=== PATIENT | female | born 1965 | race African-American/Black ===

== ENCOUNTER 2020-03-10 10:44 | Outpatient (REF) | payer MEDICARE, MEDICAID, SELFPAY ==
--- NOTE | 2020-03-10 | US_ITS ---
EXAMINATION: US ABDOMEN COMPLETE CLINICAL INFORMATION: Upper abdominal pain. COMPARISON: Report of abdomen ultrasound 09/18/11 TECHNIQUE: Real-time imaging of the abdominal viscera. FINDINGS: PANCREAS: No suspicious abnormality in the visualized portion of the pancreas. ABDOMINAL AORTA: The proximal, mid, and distal segments are normal in caliber. INFERIOR VENA CAVA: Visualized portions are normal. LIVER: Normal. The liver is normal in size. The liver contour is normal. Parenchymal echogenicity is normal. No focal hepatic lesion. There is no intrahepatic biliary duct dilatation seen. GALLBLADDER: Normal. The gallbladder is physiologically distended without evidence of stones, sludge, polyps, wall thickening or pericholecystic fluid. No reported tenderness to transducer pressure over the gallbladder. COMMON BILE DUCT: Normal in caliber measuring 0.3 cm in diameter. RIGHT KIDNEY: Normal. No hydronephrosis. No renal calculi or focal parenchymal lesions. The kidney measures 10.6 cm in maximum dimension. LEFT KIDNEY: Normal. No hydronephrosis. No renal calculi or focal parenchymal lesions. The kidney measures 10.3 cm in maximum dimension. SPLEEN: Normal. The spleen measures 8.6 cm in maximum dimension. FREE FLUID: None. US/US abdomen complete IMPRESSION: No etiology for upper abdomen pain demonstrated. Specifically there is no cholelithiasis or biliary dilation.
== END 2020-03-10 10:45 | disposition home or self-care (01) ==
LOC: HO.US 10:44
PROVIDERS: PCP Internal Medicine; Visit Provider Internal Medicine Gastroenterology
DX: R10.10 Upper abdominal pain, unspecified (principal)
CPT/HCPCS: 76700

== ENCOUNTER 2020-03-14 10:14 | Outpatient (REF) | payer MEDICARE, MEDICAID, SELFPAY ==
--- NOTE | 2020-03-14 10:19 | FL_ITS ---
EXAMINATION: FL BARIUM SWALLOW FL UPPER GI SERIES CLINICAL INFORMATION: Abdominal pain. Difficulty swallowing. COMPARISON: None TECHNIQUE: Barium swallow and upper GI exam was attempted, however, was incomplete. FINDINGS: Following oral administration of thick barium and effervescent granules, there is normal propagation of bolus from the oral cavity through the pharynx, esophagus into stomach without any evidence of obstruction, narrowing or stricture. On placing patient supine and asking patient to do 360 degree rotation for good optimization of stomach mucosa, patient had difficulty rotating and had significant pain in the right knee. She further refused the entire exam. The exam was terminated. FLUOROSCOPY TIME: 0.6 minutes DOSE AREA PRODUCT: 4.9 uGy-m2 (microgray-meter squared) FL/FL upper GI series IMPRESSION: Incomplete upper GI exam. A widely patent esophagus is noted. A widely patent GE junction is noted. No laryngeal penetration or aspiration seen. The stomach and the duodenum component of the upper GI was not performed.
--- NOTE | 2020-03-14 10:20 | FL_ITS ---
EXAMINATION: FL BARIUM SWALLOW FL UPPER GI SERIES CLINICAL INFORMATION: Abdominal pain. Difficulty swallowing. COMPARISON: None TECHNIQUE: Barium swallow and upper GI exam was attempted, however, was incomplete. FINDINGS: Following oral administration of thick barium and effervescent granules, there is normal propagation of bolus from the oral cavity through the pharynx, esophagus into stomach without any evidence of obstruction, narrowing or stricture. On placing patient supine and asking patient to do 360 degree rotation for good optimization of stomach mucosa, patient had difficulty rotating and had significant pain in the right knee. She further refused the entire exam. The exam was terminated. FLUOROSCOPY TIME: 0.6 minutes DOSE AREA PRODUCT: 4.9 uGy-m2 (microgray-meter squared) FL/FL barium swallow IMPRESSION: Incomplete upper GI exam. A widely patent esophagus is noted. A widely patent GE junction is noted. No laryngeal penetration or aspiration seen. The stomach and the duodenum component of the upper GI was not performed.
== END 2020-03-14 10:15 | disposition home or self-care (01) ==
LOC: HO.XRAY 10:14
PROVIDERS: PCP Internal Medicine; Visit Provider Internal Medicine Gastroenterology
DX: R13.14 Dysphagia, pharyngoesophageal phase (principal); R10.10 Upper abdominal pain, unspecified
CPT/HCPCS: 74220; 74240

== ENCOUNTER 2020-04-24 08:37 | Day surgery (SDC) | payer MEDICARE, MEDICAID, SELFPAY ==
[2020-04-18 15:42] VITALS: BMI 38.0
--- NOTE | 2020-04-19 08:46 | MHC.SHP ---
Pre-Procedural Eval Section A The patient is an INPATIENT: No The History & Physical has been completed within 30 days and I have reviewed it.: Yes Section B Chief Complaint: Ocular Trauma Allergies: Allergies Allergy/AdvReac Type Severity Reaction Status Date / Time oxycodone AdvReac Unknown dizziness Uncoded 04/18/20 15:38 Plan Diagnosis/Plan: Unchanged Patient has been examined and remains a candidate for the planned procedure
--- NOTE | 2020-04-21 12:43 | HO.ANESPROP2 ---
Documented by User: Tawanna Jasso 04/21/20 12:48 HPI - Anesthesia Eval Consult details Narrative: 54yo F for Eye Evisceration Repair PCP cleared [facility] Past Medical History Medical History (Updated 04/24/20 @ 10:56 by Kierra Hagen) Arthritis Blind left eye Gastroesophageal reflux disease History of postmenopausal bleeding Hx of migraines Increased BMI Family History Family History (Updated 04/04/20 @ 09:09 by Sandy Bettencourt Angel) Father Medical history unknown Mother Medical history unknown Surgical History Surgical History (Updated 04/18/20 @ 15:36 by Patience He) History of total left knee replacement (TKR) Social History Social History (Updated 04/18/20 @ 15:37 by Patience He) Alcohol intake: never Smoking Status: Former smoker Smoking Quit Date: 1985 Use of substances other than those prescribed or required for medical reasons: No Advance Directives: No Advance Directives Information Provided: No Advance Directives on File: No Meds Allergies Allergy/AdvReac Type Severity Reaction Status Date / Time oxycodone AdvReac Unknown dizziness Uncoded 04/18/20 15:38 Home Medications Medication Instructions Recorded Confirmed Type famotidine 20 mg tablet 20 mg PO BID PRN 04/07/20 04/18/20 History naproxen 500 mg tablet 500 mg PO Q12H PRN 04/07/20 04/18/20 History norethindrone acetate 5 mg tablet 5 mg PO BID 04/07/20 04/18/20 History nystatin 100,000 unit/gram topical TOPICAL DAILY 04/07/20 04/08/20 History cream Exam Exam Date and Time: April 21, 2020 1243 Height,Weight and Vital Signs: Height 5 ft 3 in Weight 97.522 kg Assessment and Plan Assessment Anesthesia Assessment: Chart Reviewed Documented by User: Kierra Hagen 04/24/20 10:57 HPI - Anesthesia Eval Consult details Narrative: Patient here for evisceration of left eye under general anesthesia [facility] Past Medical History Medical History (Updated 04/24/20 @ 10:56 by Kierra Hagen) Arthritis Blind left eye Gastroesophageal reflux disease History of postmenopausal bleeding Hx of migraines Increased BMI Family History Family History (Updated 04/04/20 @ 09:09 by Sandy Bettencourt [facility]) Father Medical history unknown Mother Medical history unknown Family history of problems with anesthesia: No Surgical History Surgical History (Updated 04/18/20 @ 15:36 by Patience He) History of total left knee replacement (TKR) History of Problems with Anesthesia: No Social History Social History (Updated 04/18/20 @ 15:37 by Patience He) Alcohol intake: never Smoking Status: Former smoker Smoking Quit Date: 1985 Use of substances other than those prescribed or required for medical reasons: No Advance Directives: No Advance Directives Information Provided: No Advance Directives on File: No Meds Allergies Allergy/AdvReac Type Severity Reaction Status Date / Time oxycodone AdvReac Unknown dizziness Uncoded 04/18/20 15:38 Home Medications Medication Instructions Recorded Confirmed Type famotidine 20 mg tablet 20 mg PO BID PRN 04/07/20 04/18/20 History naproxen 500 mg tablet 500 mg PO Q12H PRN 04/07/20 04/18/20 History norethindrone acetate 5 mg tablet 5 mg PO BID 04/07/20 04/18/20 History nystatin 100,000 unit/gram topical TOPICAL DAILY 04/07/20 04/08/20 History cream Exam Height,Weight and Vital Signs: Vital Signs Temp Pulse Resp BP Pulse Ox 04/24/20 09:49 98.4 F 84 16 143/85 H 99 Narrative Narrative: Patient refuses to open mouth wide- states has pain in her throat when opens mouth wide. Airway Mallampati Class: III TM Dist: >3cm Neck ROM: Full Heart: RRR Lungs: CTAB Assessment and Plan Assessment Anesthesia Assessment: Anesthesia Plan Discussed and Chart Reviewed Final Anesthetic Review NPO: Yes ASA Class: III Final Preanesthetic Review: No Changes in Pt Med Stat, Meds/Allgs Chart Reviewed, Consent Obtained/Reviewed and Anes Risks/Benef Reviewed Patient Risk: Intermediate Procedure Risk: Low Anesthetic Plan Anesthetic Plan: GA Disposition: Standard PACU
[2020-04-24] VITALS (9 sets, daily range): BP systolic 131–146; BP diastolic 85–96; PULSE 64–96; RESP 12–18; TEMP 36.1–36.9; O2SAT 98–100
[2020-04-24] MEDS: Lactated Ringers 500 ML 50 ML IV (10:10)
[2020-04-24] MEDS: fentaNYL citrate/PF 100 MCG/2 ML VIAL 50 MCG IVPUSH ×2 (12:43→12:53)
[2020-04-24] MEDS: Acetaminophen 325 MG TABLET 650 MG PO (12:44)
--- NOTE | 2020-04-24 23:38 | OP_ITS ---
SURGEON: Raheem Holguin MD PREOPERATIVE DIAGNOSIS: Painful blind, left eye. POSTOPERATIVE DIAGNOSIS: Painful blind, left eye. PROCEDURE PERFORMED: Evisceration of the left eye. ESTIMATED BLOOD LOSS: COMPLICATIONS: ANESTHESIA: General. ASSISTANTS: SPECIMENS: DESCRIPTION OF PROCEDURE: After obtaining informed consent, the patient was brought to the operating room suite and placed in supine position. After being placed under general anesthesia, attention was directed to the left eye which was prepped and draped in usual sterile fashion. Lidocaine was given subconjunctivally to create a 360-degree conjunctival peritomy. The conjunctiva was freed with a combination of blunt and sharp dissection utilizing Andrea scissors, exposing the sclera. A super sharp 15-degree blade was utilized to make an incision through the cornea which allowed introduction of Andrea scissors to remove the cornea circumferentially 360 degrees at the limbus. Attention was directed to the left eye internal structures, where an evisceration spoon was utilized to remove the internal contents of the eye. The eye was then packed for one-minute to obtain hemostasis with gauze and Progel. The Progel was removed and sponges soaked in absolute alcohol were utilized to clean the posterior compartment of the sclera. A #20 sizer was then utilized. It was found to be of appropriate size. A 20 mm silicone implant was then placed in the sclera and closed with a 5-0 Prolene suture. The conjunctiva and Tenon's were then closed with 6-0 Vicryl suture. Antibiotic ointment was placed followed by theplacement of the conformer. The eye was then patched closed. The patient tolerated the procedure well and will be seen in followup. MD PEPPER Adorno/NINI / [id number] GONZÁLEZ
--- NOTE | 2020-05-10 15:50 | P.CONAN_ITS ---
[facility] [place] Past Medical History Medical History (Updated 04/27/20 @ 10:30 by Len Barrett MD) Arthritis Blind left eye Gastroesophageal reflux disease History of postmenopausal bleeding Hx of migraines Increased BMI Family History Family History (Updated 04/04/20 @ 09:09 by Sandy Bettencourt [facility]) Father Medical history unknown Mother Medical history unknown Surgical History Surgical History (Updated 04/27/20 @ 08:57 by Jami Alarcon MA) History of total left knee replacement (TKR) Hx of eye surgery Social History Social History (Updated 04/27/20 @ 08:58 by Jami Alarcon MA) Alcohol intake: never Smoking Status: Never smoker Meds Allergies Allergy/AdvReac Type Severity Reaction Status Date / Time oxycodone AdvReac Unknown dizziness Uncoded 04/18/20 15:38 Home Medications Medication Instructions Recorded Confirmed Type famotidine 20 mg tablet 20 mg PO BID PRN 04/07/20 04/27/20 History naproxen 500 mg tablet 500 mg PO Q12H PRN 04/07/20 04/27/20 History norethindrone acetate 5 mg tablet 5 mg PO BID 04/07/20 04/27/20 History nystatin 100,000 unit/gram topical TOPICAL DAILY 04/07/20 04/27/20 History cream Exam Exam Date and Time: May 10, 2020 1550 Height,Weight and Vital Signs: Height 5 ft 3 in Weight 97.522 kg Last Vital Signs Temp 96.9 F 04/24/20 12:33 Pulse 88 04/24/20 13:18 Resp 18 04/24/20 13:18 BP 137/96 H 04/24/20 13:18 Pulse Ox 99 04/24/20 13:18 Airway Mallampati Class: II TM Dist: >3cm Neck ROM: Full Loose/Missing/Broken Teeth: No Heart: RRR Lungs: CTA Assessment and Plan Assessment Anesthesia Assessment: Anesthesia Plan Discussed and Chart Reviewed Final Anesthetic Review NPO: Yes ASA Class: II and Emergency Final Preanesthetic Review: No Changes in Pt Med Stat, Meds/Allgs Chart Reviewed, Consent Obtained/Reviewed and Anes Risks/Benef Reviewed Patient Risk: Intermediate Procedure Risk: Low Anesthetic Plan Anesthetic Plan: MAC: Disposition: Standard PACU
== END 2020-04-24 15:10 | disposition home or self-care (01) ==
PROVIDERS: PCP Internal Medicine; Visit Provider Ophthalmology
PROC: (CPT 65093; principal; 2020-04-24 10:40)
DX: S05.92XA Unspecified injury of left eye and orbit, initial encounter (principal); H54.40 Blindness, one eye, unspecified eye; X58.XXXA Exposure to other specified factors, initial encounter; Y93.9 Activity, unspecified; Y92.9 Unspecified place or not applicable; Y99.8 Other external cause status; Z79.899 Other long term (current) drug therapy; Z88.8 Allergy status to other drugs, medicaments and biological substances; Z87.891 Personal history of nicotine dependence
CPT/HCPCS: 65093; 88304; 88307; J1100; J1885; J2250; J2405; J3010

== ENCOUNTER → 2020-04-27 08:55 | Outpatient (BNVA) | payer MEDICARE, MEDICAID, SELFPAY | PROVIDERS: PCP Internal Medicine; Referring Provider Internal Medicine; Visit Provider Internal Medicine Gastroenterology | DX: R13.14 Dysphagia, pharyngoesophageal phase (principal); K21.9 Gastro-esophageal reflux disease without esophagitis; Z12.11 Encounter for screening for malignant neoplasm of colon; Z79.899 Other long term (current) drug therapy | CPT/HCPCS: Q3014 ==

== ENCOUNTER 2020-05-10 16:09 | Day surgery (SDC) | payer MEDICARE, MEDICAID, SELFPAY ==
[2020-05-10] VITALS (9 sets, daily range): BP systolic 127–140; BP diastolic 72–89; PULSE 65–83; RESP 16–20; TEMP 36.6–36.8; O2SAT 95–100; BMI 38.0
--- NOTE | 2020-05-10 16:45 | MHC.SHP ---
Pre-Procedural Eval Section A The patient is an INPATIENT: No The History & Physical has been completed within 30 days and I have reviewed it.: Yes Section B Chief Complaint: broken suture in eye Allergies: Allergies Allergy/AdvReac Type Severity Reaction Status Date / Time oxycodone AdvReac Unknown dizziness Uncoded 05/10/20 16:24 Plan Diagnosis/Plan: Unchanged I have reviewed the history and physical and performed a pertinent physical examination on my patient. No changes have occurred unless specified.
--- NOTE | 2020-05-10 16:57 | PC.NURSE ---
DR VILLALOBOS AT BEDSIDE TO REVIEW POST OP PLANS AT DISCHARGE.
[2020-05-10] MEDS: Acetaminophen 325 MG TABLET 650 MG PO (17:20)
--- NOTE | 2020-05-10 17:22 | PC.NURSE ---
CALL RECEIVED FROM MIGUE SINGH COUNTER SUPERVISOR, UPDATED PATIENT STATUS. PER GRADER TENDER PATIENT HAS ISSUE WITH KEYS BEING AT HOME. GRADER TENDER TO COORDINATE TRANSPORTATION AND OBTAINING ADDITIONAL [place] FROM PATIENT ROOMATE.
--- NOTE | 2020-05-10 17:23 | PC.NURSE ---
PATIENT TAKING PO FLUIDS CONVERSING WITH SYBASE DEVELOPER. CALM, COOPERATIVE. MEDICATED FOR PAIN. ENCOURAGED USE OF ICE PACK TO EYE
--- NOTE | 2020-05-10 17:41 | PC.NURSE ---
PATIENT TAKING ADDITIONAL PO FLUIDS. CONVERSING WITH STAFF INTERMITTENTLY LAUGHING. PAIN IMPROVED. MORE CALM.
--- NOTE | 2020-05-10 18:16 | OP_ITS ---
SURGEON: Raheem Holguin MD PREOPERATIVE DIAGNOSIS: POSTOPERATIVE DIAGNOSIS: PROCEDURE PERFORMED: Repair of conjunctival site of her evisceration which took place approximately 2 weeks ago. . ESTIMATED BLOOD LOSS: COMPLICATIONS: ANESTHESIA: Local with MAC. ASSISTANTS: SPECIMENS: DESCRIPTION OF PROCEDURE: After obtaining informed consent, the patient was brought to the operating suite and placed in supine position. After appropriate sedation, the left eye was prepped and draped in usual sterile fashion. Attention was directed to the left eye where a lid speculum was placed. This was followed by injection of Lidocaine along the conjunctival suture site line that was ruptured. Combination of interrupted and and continuous suture of Vicryl suture was utilized to close the conjunctival wound. We assured that there was no tension at the margin of the wound prior to placing the sutures. The lid speculum was removed and Erythromycin was placed in the eye. The patient tolerated the procedure well and will be seen in followup. MD PEPPER Adorno/MODL / [id number] MTDD
== END 2020-05-10 18:07 | disposition home or self-care (01) ==
PROVIDERS: Visit Provider Ophthalmology
PROC: (CPT 65270; principal; 2020-05-10 16:30)
DX: T81.31XA Disruption of external operation (surgical) wound, not elsewhere classified, initial encounter (principal); H59.89 Other postprocedural complications and disorders of eye and adnexa, not elsewhere classified; Y84.8 Other medical procedures as the cause of abnormal reaction of the patient, or of later complication, without mention of misadventure at the time of the procedure; Y77.3 Surgical instruments, materials and ophthalmic devices (including sutures) associated with adverse incidents; Y92.9 Unspecified place or not applicable
CPT/HCPCS: 65270; J2250; J2405; J3010

== ENCOUNTER 2020-06-14 10:18 | Outpatient (REF) | payer MEDICARE, MEDICAID, SELFPAY ==
[2020-06-14 11:18] LABS: MANUAL DIFF FLAG NO
[2020-06-14 11:20] LABS: Basophils Percent Auto 0.5 % (0-2); Eosinophils Absolute Auto 0.1 X10*3/uL (0.0-0.4); Hematocrit 39.8 % (37-47); Hemoglobin 13.1 g/dl (12.0-16.0); Imm Gran Abs Auto 0.02 X10*3/uL (0.00-0.03); Imm Gran Pct Auto 0.3 % (0.0-0.4); Lymphocytes Percent Auto 31.9 % (20-40); Mean Corpuscular HGB Conc 32.9 g/dl (31.0-35.0); Mean Corpuscular Volume 88.2 fL (80-98); Mean Platelet Volume 9.8 fL (9.4-12.3); Monocytes Absolute Auto 0.3 X10*3/uL (0.1-1.2); Monocytes Percent Auto 5.1 % (2-11); Neutrophils Absolute Auto 3.7 X10*3/uL (2.0-8.3); Neutrophils Percent Auto 60.2 % (45-73); Platelet Count 284 X10*3/uL (160-400); Red Blood Count 4.51 X10*6/uL (4.20-5.50); White Blood Count 6.1 X10*3/uL (4.8-10.8)
[2020-06-14 12:15] LABS: Alanine Aminotransferase 106 U/L (0-31); Albumin Level 3.9 g/dL (3.5-5.0); Alkaline Phosphatase 60 U/L (39-117); Anion Gap 13 (12-20); Aspartate Amino Transferase 50 U/L (5-31); Bilirubin Total 0.7 mg/dL (0.0-1.0); Blood Urea Nitrogen 10 mg/dL (9-16); Calcium 8.7 mg/dL (8.4-10.2); Carbon Dioxide 24 mmol/L (22-29); Chloride 109 mmol/L (96-108); Cholesterol 160 mg/dL; Estimated Glomerular Filt Rate 53; Glucose Fasting 82 mg/dL (60-99); HDL Cholesterol 36 mg/dL; LDL Cholesterol Calculated 112 mg/dl; Potassium 4.6 mmol/l (3.3-5.1); Sodium 141 mmol/L (135-145); Total Protein 6.9 g/dL (6.5-8.0); Triglycerides 62 mg/dL
[2020-06-19 20:26] LABS: Mixing Study - PT 10.5 sec (9.0-11.5); PTT LA 30 sec (< OR = 40)
== END 2020-06-14 10:19 | disposition home or self-care (01) ==
LOC: HO.LAB 10:18
PROVIDERS: PCP Nurse Practitioner Family; Visit Provider Internal Medicine
DX: Z00.00 Encounter for general adult medical examination without abnormal findings (principal)
CPT/HCPCS: 36415; 80053; 80061; 85025; 85611; 85732

== ENCOUNTER → 2020-08-17 09:32 | Outpatient (BNVA) | payer MEDICARE, MEDICAID, SELFPAY | PROVIDERS: PCP Internal Medicine; Referring Provider Internal Medicine; Visit Provider Internal Medicine Gastroenterology | DX: R13.14 Dysphagia, pharyngoesophageal phase (principal); K21.9 Gastro-esophageal reflux disease without esophagitis; R79.89 Other specified abnormal findings of blood chemistry; Z79.899 Other long term (current) drug therapy | CPT/HCPCS: Q3014 ==

== ENCOUNTER → 2020-09-21 13:34 | Outpatient (BNVA) | payer MEDICARE, MEDICAID, SELFPAY | PROVIDERS: PCP Internal Medicine; Visit Provider Internal Medicine Gastroenterology | DX: Z13.89 Encounter for screening for other disorder (principal) | CPT/HCPCS: Q3014 ==

== ENCOUNTER 2020-11-06 12:26 | Outpatient (REF) | payer MEDICARE, MEDICAID, SELFPAY ==
--- NOTE | ~2020-11-06 | MM_ITS ---
EXAMINATION: MM DIAGNOSTIC DIGITAL BREAST TOMOSYNTHESIS, BILATERAL CLINICAL INFORMATION: Due for yearly. Also follow-up probable benign regional calcifications outer left breast. The lifetime risk of breast cancer based on the Tyrer-Cuzick Model is 6%. COMPARISON: Mammography: 11/05/2019, 04/23/2019, 10/13/2018 (diagnostic, BI-RADS 3), 12/02/2017 TECHNIQUE: Digital breast tomosynthesis is performed in both the craniocaudal and mediolateral oblique views along with computer-aided detection (CAD). Synthesized 2D images are generated from the tomosynthesis. Additional magnification views are obtained: Left CC x2, left ML x2. FINDINGS: The breasts are heterogeneously dense, which may obscure small masses (ACR BI-RADS breast composition Category c). There is a fibrocystic parenchymal pattern with waxing and waning oval masses similar to prior studies. There is no significant mass or architectural abnormality. No focal developing density. There is biopsy clip marker again seen central lower left breast. There are no abnormal calcifications. The left breast calcifications for follow-up outer quadrant are without significant change from prior diagnostic studies. This concludes the long-term surveillance and they are now considered to be benign. Results are provided to the patient at time of visit by the technologist. MM/MM tomosynthesis diagnostic BI IMPRESSION: 1. Fibrocystic parenchymal pattern similar to prior studies. 2. Stable left breast calcifications outer quadrant, now considered to be benign. ASSESSMENT: BI-RADS 2: Benign RECOMMENDATION: Routine annual mammography screening. This patient's information was entered into a reminder system with a target due date for their next mammogram.
== END 2020-11-06 12:27 | disposition home or self-care (01) ==
LOC: HO.MAMMO 12:26
PROVIDERS: Visit Provider Internal Medicine
DX: R92.1 Mammographic calcification found on diagnostic imaging of breast (principal)
CPT/HCPCS: 77062; 77066

== ENCOUNTER → 2020-12-28 14:35 | Outpatient (BNVA) | payer MEDICARE, MEDICAID, SELFPAY | PROVIDERS: PCP Internal Medicine; Referring Provider Internal Medicine; Visit Provider Internal Medicine Gastroenterology | DX: R79.89 Other specified abnormal findings of blood chemistry (principal); R13.14 Dysphagia, pharyngoesophageal phase; K21.9 Gastro-esophageal reflux disease without esophagitis | CPT/HCPCS: 99212 ==

== ENCOUNTER 2021-01-10 10:20 | Outpatient (REF) | payer MEDICARE, MEDICAID, SELFPAY ==
[2021-01-10 11:33] LABS: Alanine Aminotransferase 54 U/L (0-31); Albumin Level 4.1 g/dL (3.5-5.0); Alkaline Phosphatase 63 U/L (39-117); Aspartate Amino Transferase 27 U/L (5-31); Bilirubin Direct 0.2 mg/dL (0.0-0.5); Bilirubin Total 0.6 mg/dL (0.0-1.0); Total Protein 7.2 g/dL (6.5-8.0)
[2021-01-10 12:21] LABS: Ferritin 40 ng/mL (10-250)
[2021-01-11 04:13] LABS: Hepatitis A Antibody IgG Nonreactive (Nonreactive); ~Hepatitis A Antibody IgG 0.31 S/CO (0.00-0.99)
[2021-01-11 04:39] LABS: HBS Num1 0.12 mIU/mL (0-7.99); ~Hepatitis B Surface Antibody NONREACTIVE (Nonreactive)
[2021-01-11 04:42] LABS: HBc Num1 0.08 S/CO (0.00-0.79); HBsAGNum1 0.15 S/CO (0.00-0.99); Hepatitis B Core Antibody Nonreactive (Nonreactive); Hepatitis B Surface Antigen Negative (Negative); ~HepC Num1 0.13 S/CO (0.00-0.79); ~Hepatitis C Antibody Nonreactive (Nonreactive)
[2021-01-11 11:45] LABS: Prot Elec - Alpha1 0.3 g/dL (0.2-0.3); Prot Elec - Alpha2 0.9 g/dL (0.5-0.9); Prot Elec - Beta 1 0.5 g/dL (0.4-0.6); Prot Elec - Beta 2 0.4 g/dL (0.2-0.5); Prot Elec - Gamma 1.3 g/dL (0.8-1.7); Prot Elec - Total Protein 7.3 g/dL (6.1-8.1)
[2021-01-15 13:31] LABS: Anti Nuclear Antibody Screen POSITIVE (NEGATIVE)
[2021-01-15 13:36] LABS: ANA Pattern 2 Nuclear, Speckled
[2021-01-17 11:16] LABS: Smooth Muscle Antibody <20 U (<20)
== END 2021-01-10 10:21 | disposition home or self-care (01) ==
LOC: HO.LAB 10:20
PROVIDERS: PCP Internal Medicine; Visit Provider Internal Medicine Gastroenterology
DX: R79.89 Other specified abnormal findings of blood chemistry (principal)
CPT/HCPCS: 36415; 80076; 82728; 84165; 86038; 86039; 86255; 86704; 86706; 86708; 86803; 87340

== ENCOUNTER 2021-03-07 09:00 | Outpatient (REF) | payer MEDICARE, MEDICAID, SELFPAY ==
[2021-03-19 14:24] LABS: FIT Int Ctl YES; FIT1 NEGATIVE (NEGATIVE); FIT2 NEGATIVE (NEGATIVE)
== END 2021-03-07 09:01 | disposition home or self-care (01) ==
LOC: HO.LNP 09:00
PROVIDERS: Visit Provider Internal Medicine Gastroenterology
DX: Z12.11 Encounter for screening for malignant neoplasm of colon (principal)
CPT/HCPCS: 82274

== ENCOUNTER 2021-11-07 10:45 | Outpatient (REF) | payer OTHER, MEDICAID, SELFPAY ==
--- NOTE | ~2021-11-07 | MM_ITS ---
EXAMINATION: MM SCREENING DIGITAL BREAST TOMOSYNTHESIS, BILATERAL CLINICAL INFORMATION: Screening. Asymptomatic. The lifetime risk of breast cancer based on the Tyrer-Cuzick Model is 6%. COMPARISON: Mammography: 11/06/2020, 11/05/2019, 04/23/2019, 10/13/2018, 12/02/2017 TECHNIQUE: Digital breast tomosynthesis is performed in both the craniocaudal and mediolateral oblique views along with computer-aided detection (CAD). Synthesized 2D images are generated from the tomosynthesis. FINDINGS: The breasts are heterogeneously dense, which may obscure small masses (ACR BI-RADS breast composition Category c). Breast tissue composition borders on extremely dense. Parenchymal pattern is similar to prior studies. Again, there are smooth round and oval waxing and waning fibrocystic masses, central left and central outer right breast decreased since 2018. There is no architectural abnormality. No abnormal calcifications. Biopsy clip marker again noted left breast mid 3:30 o'clock position. The axilla are unremarkable. MM/MM tomosynthesis screening BI IMPRESSION: No mammographic evidence of malignancy. ASSESSMENT: BI-RADS 2: Benign RECOMMENDATION: Routine annual mammography screening. This patient's information was entered into a reminder system with a target due date for their next mammogram.
== END 2021-11-07 10:46 | disposition home or self-care (01) ==
LOC: HO.MAMMO 10:45
PROVIDERS: PCP Internal Medicine; Visit Provider Internal Medicine
DX: Z12.31 Encounter for screening mammogram for malignant neoplasm of breast (principal)
CPT/HCPCS: 77063; 77067

== ENCOUNTER 2022-07-09 09:42 | Outpatient (REF) | payer OTHER, MEDICAID, SELFPAY ==
[2022-07-09 10:09] LABS: MANUAL DIFF FLAG NO
[2022-07-09 10:51] LABS: Basophils Percent Auto 0.6 % (0-2); Eosinophils Absolute Auto 0.3 X10*3/uL (0.0-0.4); Eosinophils Percent Auto 4.2 % (0-4); Hematocrit 41.7 % (37.0-47.0); Hemoglobin 13.9 g/dl (12.0-16.0); Imm Gran Abs Auto 0.02 X10*3/uL (0.00-0.03); Imm Gran Pct Auto 0.3 % (0.0-0.4); Lymphocytes Absolute Auto 1.6 X10*3/uL (1.2-4.9); Lymphocytes Percent Auto 21.8 % (20-40); Mean Corpuscular HGB Conc 33.3 g/dl (31.0-35.0); Mean Corpuscular Hemoglobin 28.5 pg (27.0-33.0); Mean Corpuscular Volume 85.5 fL (80.0-98.0); Mean Platelet Volume 10.1 fL (9.4-12.3); Monocytes Absolute Auto 0.4 X10*3/uL (0.1-1.2); Monocytes Percent Auto 5.3 % (2-11); Neutrophils Absolute Auto 4.8 x10*3/uL (2.0-8.3); Neutrophils Percent Auto 67.8 % (45-73); Platelet Count 293 X10*3/uL (160-400); Red Blood Count 4.88 X10*6/uL (4.20-5.50); Red Cell Distribution Width 13.2 % (11.0-16.0); White Blood Count 7.1 X10*3/uL (4.8-10.8)
[2022-07-09 11:25] LABS: Alanine Aminotransferase 30 U/L (0-31); Alkaline Phosphatase 84 U/L (39-117); Anion Gap 14 (12-20); Aspartate Amino Transferase 21 U/L (5-31); Bilirubin Total 0.6 mg/dL (0.0-1.0); Blood Urea Nitrogen 11 mg/dL (9-16); Calcium 9.2 mg/dL (8.4-10.2); Carbon Dioxide 21 mmol/L (22-29); Chloride 107 mmol/L (96-108); Cholesterol 153 mg/dL; Estimated Glomerular Filt Rate 54; Glucose Fasting 83 mg/dL (60-99); HDL Cholesterol 36 mg/dL; LDL Cholesterol Calculated 106 mg/dl; Potassium 3.9 mmol/L (3.3-5.1); Sodium 138 mmol/L (135-145); Total Protein 7.2 g/dL (6.5-8.0); Triglycerides 58 mg/dL
[2022-07-09 11:43] LABS: Thyroid Stimulating Hormone 1.75 uIU/mL (0.32-4.0)
== END 2022-07-09 09:43 | disposition home or self-care (01) ==
LOC: HO.LAB 09:42
PROVIDERS: PCP Internal Medicine; Visit Provider Internal Medicine
DX: E78.5 Hyperlipidemia, unspecified (principal); E03.9 Hypothyroidism, unspecified; N28.9 Disorder of kidney and ureter, unspecified; D64.9 Anemia, unspecified
CPT/HCPCS: 36415; 80053; 80061; 84443; 85025

== ENCOUNTER 2022-11-11 10:25 | Outpatient (REF) | payer OTHER, MEDICAID, SELFPAY ==
--- NOTE | ~2022-11-11 | MM_ITS ---
EXAMINATION: MM SCREENING DIGITAL BREAST TOMOSYNTHESIS, BILATERAL CLINICAL INFORMATION: Screening. Asymptomatic. The lifetime risk of breast cancer based on the Tyrer-Cuzick Model is 6%. COMPARISON: Multiple prior mammography exams including most recent 11/07/2021. Ultrasound right breast 10/13/2018. TECHNIQUE: Digital breast tomosynthesis is performed in both the craniocaudal and mediolateral oblique views along with computer-aided detection (CAD). Synthesized 2D images are generated from the tomosynthesis. Additional left MLO x2 views are obtained. FINDINGS: The breasts are heterogeneously dense, which may obscure small masses (ACR BI-RADS breast composition Category c). Parenchymal pattern is similar to prior studies and there is no significant mass or architectural abnormality or developing density. No abnormal calcifications. Left breast again has biopsy clip marker mid 3:00 position. There is fibrocystic parenchymal pattern with smooth round and oval waxing and waning masses, moderately decreased since 2018. The axilla and skin contours are unremarkable. MM/MM tomosynthesis screening BI IMPRESSION: -No significant changes from prior studies. -No mammographic evidence of malignancy. ASSESSMENT: BI-RADS 2: Benign RECOMMENDATION: Routine annual mammography screening. This patient's information was entered into a reminder system with a target due date for their next mammogram.
== END 2022-11-11 10:26 | disposition home or self-care (01) ==
LOC: HO.MAMMO 10:25
PROVIDERS: PCP Internal Medicine; Visit Provider Internal Medicine
DX: Z12.31 Encounter for screening mammogram for malignant neoplasm of breast (principal)
CPT/HCPCS: 77063; 77067

== ENCOUNTER 2023-07-10 08:43 | Outpatient (AMB) | payer OTHER, MEDICAID, SELFPAY ==
[2023-07-10 09:35] VITALS: BP 132/60; PULSE 67; O2SAT 98; BMI 45.3
--- NOTE | 2023-07-10 09:35 | A.OFFPC_ITS ---
Vital Signs 07/10/23 09:35 Height 5 ft 3 in Weight 256 lb BMI 45.3 BP 132/60 Blood Pressure Location Lt brachial Position Sitting Pulse 67 Pulse Source Pulse Oximeter Pulse Oximetry (%) 98 Oxygen Delivery Method Room Air Intake Visit Reasons: Annual Exam Pail Tester Required: No Application Support Lead: Not Required per policy Accompanied by: Self / Same As Patient Allergies oxycodone Allergy (Unknown, Verified 07/10/23 09:35) Dizziness Tobacco use date assessed: 07/10/23 Dental Screening Dental Screen Date: 07/10/23 Did you have a dental visit in the last 12 months?: No Did you have a dental problem in the last 6 months where you did not have access to dental care?: No Was dental information given to patient?: Patient has dentist HPI Annual Exam HPI Details healthy [facility] Medical History (Updated 07/08/22 @ 12:25 by Tee Mukherjee MD) Cognitive developmental delay Gastroesophageal reflux disease Increased BMI Blind left eye Arthritis History of postmenopausal bleeding Hx of migraines Surgical History Hx of eye surgery History of total left knee replacement (TKR) Family History Father Medical history unknown Mother Medical history unknown Social History Household Members: Friend(s) Housing: Apartment Alcohol intake: never Patient Tobacco Use Status: Never used Tobacco Tobacco use type: Cigarette e-Cigarette/Vaping Use: Never Used Second Hand Smoke Exposure: No service: No Current occupational status: disabled Cognitive needs: No Hearing needs: No Vision needs: Yes Questionnaire PHQ-9 Over the last 2 weeks, how often have you been bothered by any of the following problems? 1. Little interest or pleasure in doing things: not at all 2. Feeling down, depressed, or hopeless: not at all 3. Trouble falling or staying asleep, or sleeping too much: not at all 4. Feeling tired or having little energy: not at all 5. Poor appetite or overeating: not at all 6. Feeling bad about yourself - or that you are a failure or have let yourself or your family down: not at all 7. Trouble concentrating on things, such as reading the newspaper or watching television: not at all 8. Moving or speaking so slowly that other people could have noticed. Or the opposite - being so fidgety or restless that you have been moving around a lot more than usual: not at all 9. Thoughts that you would be better off or of hurting yourself in some way: not at all Total score: 0 Depression Screening Interpretation: Positive Depression Screening Done: Yes 19959 - PHQ-9 Billing: Yes Source: Developed by Drs. Mehul Hardy, Ana Maria Chen, Ameya Lemus and colleagues, with an educational richie from [employer]. Thrive Questionnaire Date Thrive assessed: 07/10/23 I am a: Patient What is your living situation today?: I have a steady place to live Within the past 12 months, did the food you bought not last and you didn't have the money to get more?: Never true Within the past 12 months, did you worry whether your food would run out before you got money to buy more?: Never true Do you have trouble paying for medicines?: No Do you have trouble getting transportation to medical appointments?: No Do you have trouble paying your heating and electricity bill?: No Do you have trouble taking care of your child, family member or friend?: No Do you have trouble with day-to-day activities such as bathing, preparing meals, shopping, managing finances, etc.?: No Are you currently unemployed and looking for a job?: No Are you interested in more education?: No Please select the resources that you would like help with: None THRIVE Score: 0 AUDIT C Alcohol Use Questionnaire (AUDIT-C) 1. How often do you have a drink containing alcohol?: Never Total Score: 0 ERICK-7 AMB Questionnaire ERICK-7 Date ERICK - 7 assessed: 07/10/23 Feeling nervous, anxious, or on edge: 0 = Not at all Not being able to stop or control worryin = Not at all Worrying too much about different things: 0 = Not at all Trouble relaxin = Not at all Being so restless that it is hard to sit still: 0 = Not at all Becoming easily annoyed or irritable: 0 = Not at all Feeling afraid as if something awful might happen: 0 = Not at all Total ERICK-7 score (0-4 normal; 5-9 mild; 10-14 moderate; 15-21 severe): 0 Source: Developed by Drs. Mehul Hardy, Ana Maria Chen, Ameya Lemus and colleagues, with an educational richie from [employer]. ERICK-7 Assessment Billing ERICK-7 Assessment Tool: ERICK-7 Assessment 39849 Review of Systems Const Denies chills, Denies fatigue, Denies headache(s) and Denies weight loss Eyes Denies change in vision, Denies diplopia and Denies eye pain ENT Denies vertigo, Denies dizziness, Denies headache(s) and Denies nasal discharge Card Denies chest pain, Denies rapid heart rate and Denies dyspnea on exertion Resp Denies chest congestion, Denies cough, Denies pain with cough and Denies dyspnea on exertion GI Denies abdominal pain, Denies hematochezia and Denies change in bowel habits Musc Denies myalgias, Denies arthralgias and Denies joint swelling Skin/Breast Denies lesions and Denies unusual bruising Neuro Denies vertigo, Denies dizziness, Denies headache(s) and Denies focal weakness Endo Denies fatigue Physical exam (Primary Care) Vital Signs: Last Vital Signs Pulse 67 07/10/23 09:35 BP 132/60 07/10/23 09:35 Pulse Ox 98 07/10/23 09:35 Oxygen Delivery Method Room Air 07/10/23 09:35 BMI result Body Mass Index 45.3 Tobacco/Smoking Status: Tobacco use Status Tobacco use date assessed 07/10/23 07/10/23 09:42 Patient Tobacco Use Status Never used Tobacco 07/10/23 09:42 Tobacco use type Cigarette 07/10/23 09:42 e-Cigarette/Vaping Use Never Used 07/10/23 09:42 PHQ-9: PHQ-9 Score PHQ-9: Total score 0 07/10/23 09:42 Depression Screening Interpretation: Positive Thrive Assessment: Date of Thrive Assessment Date Thrive assessed 07/10/23 07/10/23 09:42 Const General: cooperative, healthy appearing and no acute distress Orientation/consciousness: oriented to person, oriented to place and oriented to time HENMT Head: Yes normal to inspection, Yes normocephalic and Yes atraumatic Mouth: Normal oral and palatal mucosa present and tongue normal Throat: Yes posterior oropharynx normal and Yes uvula midline Eyes General: appearance normal, both eyes and all related structures Neck Neck: Yes normal visual inspection, Yes full ROM and Yes no lymphadenopathy Thyroid: Thyroid normal Carotids: normal carotid upstroke Chest Chest palpation & inspection: normal inspection of the chest Resp Effort & Inspection: normal respiratory effort and able to speak in complete sentences Auscultation: clear to auscultation bilaterally Cardio Jugular venous distension: no JVD Palpation: normal PMI Rate: regular rate Rhythm: regular rhythm Heart sounds: S1 normal heart sound present and S2 normal heart sound present GI Inspection: Yes normal to inspection Palpation (GI): Soft to palpation and No hepatosplenomegaly present Auscultation: normal bowel sounds General: Yes no CVA tenderness Back/Spine/Pelvis Back: no CVA tenderness Skin General skin exam: no rashes or lesions noted Neuro General: oriented to person, oriented to place and oriented to time Extrem General: Yes normal to inspection and Yes full ROM Assessment and Plan Assessment & Plan (1) Physical exam: Code(s): Z00.00 - Encounter for general adult medical examination without abnormal findings Plan: stable; do labs (2) Cognitive developmental delay: Code(s): F81.9 - Developmental disorder of scholastic skills, unspecified Plan: mild and stable Coding Level of Care Code Est Pt Prev Care 40-64y(20066) Diagnoses Physical exam Z00.00 Cognitive developmental delay F81.9 Additional Codes ERICK-7 Assessment Billing - ERICK-7 Assessment Tool: ERICK-7 Assessment [id number] ([id number])
== END 2023-07-10 10:08 | disposition home or self-care (01) ==
PROVIDERS: Visit Provider Internal Medicine
DX: Z00.00 Encounter for general adult medical examination without abnormal findings (principal); F81.9 Developmental disorder of scholastic skills, unspecified
CPT/HCPCS: 99396

== ENCOUNTER 2023-11-17 09:01 | Outpatient (REF) | payer OTHER, MEDICAID, SELFPAY ==
--- NOTE | ~2023-11-17 | MM_ITS ---
EXAMINATION: MM SCREENING DIGITAL BREAST TOMOSYNTHESIS, BILATERAL CLINICAL INFORMATION: Screening. Asymptomatic. COMPARISON: Mammography: This study is compared with prior exams dating back to 2019. TECHNIQUE: Digital breast tomosynthesis is performed in both the craniocaudal and mediolateral oblique views along with computer-aided detection (CAD). Synthesized 2D images are generated from the tomosynthesis. FINDINGS: The breasts are heterogeneously dense, which may obscure small masses (ACR BI-RADS breast composition Category c). There are no significant masses, abnormal calcifications, or other abnormalities. There is a biopsy tissue marker in the left breast. MM/MM tomosynthesis screening BI IMPRESSION: No mammographic evidence of malignancy. ASSESSMENT: BI-RADS BI-RADS 2 - Benign Findings RECOMMENDATION: Routine annual mammography screening. 1 year F/U This examination should not preclude the clinical evaluation of a suspicious palpable abnormality. This patient's information was entered into a reminder system with a target due date for their next mammogram.
== END 2023-11-17 09:02 | disposition home or self-care (01) ==
LOC: HO.MAMMO 09:01
PROVIDERS: PCP Internal Medicine; Visit Provider Internal Medicine
DX: Z12.31 Encounter for screening mammogram for malignant neoplasm of breast (principal)
CPT/HCPCS: 77063; 77067

== ENCOUNTER → 2023-11-17 10:00 | Outpatient (BNV) | payer OTHER, MEDICAID, SELFPAY | PROVIDERS: PCP Internal Medicine; Visit Provider Radiology Diagnostic Radiology | DX: Z12.31 Encounter for screening mammogram for malignant neoplasm of breast (principal) | CPT/HCPCS: 77063; 77067 ==

== ENCOUNTER 2024-07-12 10:04 | Outpatient (AMB) | payer OTHER, MEDICAID, SELFPAY ==
--- NOTE | 2024-07-12 10:17 | A.OFFPC_ITS ---
Vital Signs 07/12/24 10:19 Height 5 ft 3 in Weight 253 lb 6 oz BMI 44.9 BP 120/72 Blood Pressure Location Lt brachial Position Sitting Pulse 73 Pulse Source Pulse Oximeter Temp 97.3 F Temp Source Temporal Artery Scan Pulse Oximetry (%) 98 Oxygen Delivery Method Room Air Intake Visit Reasons: Annual Exam Intake Note: Patient is here today for a physical. Dental Technician Required: No Obedience Trainer: Not Required per policy Accompanied by: Self / Same As Patient Allergies oxycodone Allergy (Unknown, Verified 07/12/24 10:19) Dizziness Tobacco use date assessed: 07/12/24 Dental Screening Dental Screen Date: 07/12/24 Did you have a dental visit in the last 12 months?: No Did you have a dental problem in the last 6 months where you did not have access to dental care?: No Was dental information given to patient?: No HPI Annual Exam HPI Details healthy [facility] Medical History (Updated 07/08/22 @ 12:25 by Tee Mukherjee MD) Cognitive developmental delay Gastroesophageal reflux disease Increased BMI Blind left eye Arthritis History of postmenopausal bleeding Hx of migraines Surgical History (Updated 07/12/24 @ 10:24 by LUCRECIA Chatman) History of total knee replacement (TKR) Hx of eye surgery History of total left knee replacement (TKR) Family History (Updated 07/12/24 @ 10:18 by LUCRECIA Chatman) Father Medical history unknown Mother Medical history unknown Social History Household Members: Friend(s) Housing: Apartment Alcohol intake: never Patient Tobacco Use Status: Never used Tobacco Tobacco use type: Cigarette e-Cigarette/Vaping Use: Never Used Second Hand Smoke Exposure: No service: No Current occupational status: disabled Cognitive needs: Yes (Cane) Hearing needs: No Vision needs: Yes Questionnaire PHQ-9 Over the last 2 weeks, how often have you been bothered by any of the following problems? 1. Little interest or pleasure in doing things: not at all 2. Feeling down, depressed, or hopeless: not at all 3. Trouble falling or staying asleep, or sleeping too much: not at all 4. Feeling tired or having little energy: not at all 5. Poor appetite or overeating: not at all 6. Feeling bad about yourself - or that you are a failure or have let yourself o r your family down: not at all 7. Trouble concentrating on things, such as reading the newspaper or watching television: not at all 8. Moving or speaking so slowly that other people could have noticed. Or the opposite - being so fidgety or restless that you have been moving around a lot more than usual: not at all 9. Thoughts that you would be better off or of hurting yourself in some way: not at all Total score: 0 Depression Screening Interpretation: Negative Depression Screening Done: Yes Source: Developed by Drs. Mehul Hardy, Ana Maria Chen, Ameya Lemus and colleagues, with an educational richie from [employer] Thrive Questionnaire Date Thrive assessed: 07/12/24 I am a: Patient What is your living situation today?: I have a steady place to live Within the past 12 months, did the food you bought not last and you didn't have the money to get more?: Never true Within the past 12 months, did you worry whether your food would run out before you got money to buy more?: Never true Do you have trouble paying for medicines?: No Do you have trouble getting transportation to medical appointments?: No Do you have trouble paying your heating and electricity bill?: No Do you have trouble taking care of your child, family member or friend?: No Do you have trouble with day-to-day activities such as bathing, preparing meals, shopping, managing finances, etc.?: No Are you currently unemployed and looking for a job?: No Are you interested in more education?: No Please select the resources that you would like help with: None Currently or been in a relationship where the following occur: No concerns reported THRIVE Score: 0 AUDIT C Alcohol Use Questionnaire (AUDIT-C) 1. How often do you have a drink containing alcohol?: Never Total Score: 0 ERICK-7 AMB Questionnaire ERICK-7 Date ERICK - 7 assessed: 07/12/24 Feeling nervous, anxious, or on edge: 0 = Not at all Not being able to stop or control worryin = Not at all Worrying too much about different things: 0 = Not at all Trouble relaxin = Not at all Being so restless that it is hard to sit still: 0 = Not at all Becoming easily annoyed or irritable: 0 = Not at all Feeling afraid as if something awful might happen: 0 = Not at all Total ERICK-7 score (0-4 normal; 5-9 mild; 10-14 moderate; 15-21 severe): 0 Source: Developed by Drs. Mehul Hardy, Ana Maria Chen, Ameya Lemus and colleagues, with an educational richie from [employer] Review of Systems Const Denies chills, Denies fatigue, Denies headache(s) and Denies weight loss Eyes Denies change in vision, Denies diplopia and Denies eye pain ENT Denies vertigo, Denies dizziness, Denies headache(s) and Denies nasal discharge Card Denies chest pain, Denies rapid heart rate and Denies dyspnea on exertion Resp Denies chest congestion, Denies cough, Denies pain with cough and Denies dyspnea on exertion GI Denies abdominal pain, Denies hematochezia and Denies change in bowel habits Musc Denies myalgias, Denies arthralgias and Denies joint swelling Skin/Breast Denies lesions and Denies unusual bruising Neuro Denies vertigo, Denies dizziness, Denies headache(s) and Denies focal weakness Endo Denies fatigue Physical exam (Primary Care) Vital Signs: Last Vital Signs Temp 97.3 F 07/12/24 10:19 Pulse 73 07/12/24 10:19 BP 120/72 07/12/24 10:19 Pulse Ox 98 07/12/24 10:19 Oxygen Delivery Method Room Air 07/12/24 10:19 BMI result Body Mass Index 44.9 Tobacco/Smoking Status: Tobacco use Status Tobacco use date assessed 07/12/24 07/12/24 10:25 Patient Tobacco Use Status Never used Tobacco 07/12/24 10:25 Tobacco use type Cigarette 07/12/24 10:25 e-Cigarette/Vaping Use Never Used 07/12/24 10:25 PHQ-9: PHQ-9 Score PHQ-9: Total score 0 07/12/24 10:25 Depression Screening Interpretation: Negative Thrive Assessment: Date of Thrive Assessment Date Thrive assessed 07/12/24 07/12/24 10:25 Currently or been in a relationship where the following occur: No concerns reported Const General: cooperative, healthy appearing and no acute distress Orientation/consciousness: oriented to person, oriented to place and oriented to time HENMT Head: Yes normal to inspection, Yes normocephalic and Yes atraumatic Mouth: Normal oral and palatal mucosa present and tongue normal Throat: Yes posterior oropharynx normal and Yes uvula midline Eyes General: appearance normal, both eyes and all related structures Neck Neck: Yes normal visual inspection, Yes full ROM and Yes no lymphadenopathy Thyroid: Thyroid normal Carotids: normal carotid upstroke Chest Chest palpation & inspection: normal inspection of the chest Resp Effort & Inspection: normal respiratory effort and able to speak in complete sentences Auscultation: clear to auscultation bilaterally Cardio Jugular venous distension: no JVD Palpation: normal PMI Rate: regular rate Rhythm: regular rhythm Heart sounds: S1 normal heart sound present and S2 normal heart sound present GI Inspection: Yes normal to inspection Palpation (GI): Soft to palpation and No hepatosplenomegaly present Auscultation: normal bowel sounds General: Yes no CVA tenderness Back/Spine/Pelvis Back: no CVA tenderness Skin General skin exam: no rashes or lesions noted Neuro General: oriented to person, oriented to place and oriented to time Extrem General: Yes normal to inspection and Yes full ROM Coding Level of Care Code Est Pt Prev Care 40-64y(16568) Diagnoses Physical exam Z00.00 Assessment & Plan Assessment & Plan (1) Physical exam: Code(s): Z00.00 - Encounter for general adult medical examination without abnormal findings Category: Medical Plan: stable; do labs Orders: Orders Thyroid Stimulating Hormone Today Z13.29 - Encounter for screening for other suspected endocrine disorder Complete Blood Count Auto Diff Today Z13.0 - Encounter for screening for diseases of the blood and blood-forming organs and certain disorders involving the immune mechanism Comprehensive [place]. Panel Fast Today Z13.9 - Encounter for screening, unspecified Lipid Panel Today Z13.220 - Encounter for screening for lipoid disorders
[2024-07-12 10:19] VITALS: BP 120/72; PULSE 73; TEMP 36.3; O2SAT 98; BMI 44.9
--- OUTSIDE RECORDS SUMMARY | 2024-07-12 11:12 | XMS_ITS | Clinical Summary ---
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 Name Role Phone Unavailable Primary Care Provider Unavailabl e Social History Tobacco Use Types Packs/Day Years Used Date Smoking Tobacco: Never Assessed Comments Unknown Sex and Gender Information Value Date Recorded Sex Assigned at Female 03/18/2022 10:36 AM EDT Legal Sex Female 10:36 AM EDT Gender Identity Female 03/18/2022 10:36 AM EDT Sexual Orientation Choose not to disclose 2021 10:36 AM EDT Plan of Treatment Health Maintenance Due Date Last Done Comments CT Colonography 1965 Colonoscopy 1965 Colorectal Cancer Screening 1965 Depression Screening 1965 FIT DNA/Cologuard 1965 FIT 1965 FOBT 1965 HIV Screening 1965 Lipid Panel 1965 SDOH Screening 1965 Sigmoidoscopy 1965 Alcohol/Substance Use Screening 1977 Tobacco Screening 1977 Hepatitis C Screening 12/11/1983 Hepatitis B Vaccines (1 of 3 - 19+ 3-dose series) 1984 Pap Smear 1986 Cervical Cancer Screening 12/11/1995 HPV/Cotest 12/11/1995 Mammogram 2005 Pneumococcal Vaccine: 50+ Years (1 of 1 - PCV) 12/11/2015 Zoster Vaccines (1 of 2) 12/11/2015 COVID-19 Vaccine (5 - 2023- season) 2024 03/20/2022, 11/15/2021, 10/27/2020, Additional history exists Influenza Vaccine (#1) 2024 , 02/19/2020, 03/25/2016 DTaP/Tdap/Td Vaccines (2 - Td or Tdap) 11/16/2031 11/15/2021 RSV Patients and Patients Aged 60 years or older (1 - 1-dose 75+ series) 2040 HIB Vaccines Aged Out No longer eligi ble based on patient's age to complete this topic HPV Vaccines Aged Out No longer eligi ble based on patient's age to complete this topic Hepatitis A Vaccines Aged Out No long er eligible based on patient's age to complete this topic IPV Vaccines Aged Out No longer eligi ble based on patient's age to complete this topic Meningococcal Vaccine Aged Out No odell chet eligible based on patient's age to complete this topic Pneumococcal Vaccine: Pediatrics (0 to 5 Years) and At-Risk Patients (6 to 49) Years) Aged Out No longer eligible based on patient's age to complete this topic RSV under 20 months Aged Out No longe r eligible based on patient's age to complete this topic Rotavirus Vaccines Aged Out No longer eligible based on patient's age to complete this topic Insurance [facility] STANDARD
--- OUTSIDE RECORDS SUMMARY | 2024-07-12 11:12 | XMS_ITS | Continuity of Care Document ---
Author Organization [facility], PATRICA Chandler Garyjessica 3rd floor Address [address] [place] [address] Care Team Providers Care Boilermaker Fitter Name Role Phone TRACE CASTILLO Primary Care Provider Assessment Encounter Date Assessment Date Assessment LastModified by Organization Details LastModified Time 06/18/2024 06/18/2024 Patient seen under general supervision of Dr. Vasquez who was available but who did not see the patient. HPI: 58-year-old female with arthrofibrosis right TKA status post surgery 01/12/24. Patient had sustained a fall earlier in the week, denies any pain about the knee reports she landed on her backside wanted to be sure there is no damage to the knee when this occurred. Has been continuing to work on her motion still has limitations in this regard. Denies any swelling about the knee. Examination: 50-year-old female located distress. Examination right knee midline surgical incision healing well and benign. Range of motion 3-70? ? ?. No instability. Calf is soft. Extensor mechanism remains intact. X-rays ordered, obtained and reviewed at [facility] 3 views right knee reveal cementless total knee arthroplasty no evidence of periprosthetic fracture or loosening. Impression: Arthrofibrosis right TKA Plan: Patient is not any change or worsening with her recent fall. Falls precautions are discussed. Patient will keep scheduled follow-up visit with Dr. Garza. [facility] speech recognition replanter software was used to create portions of this document. An attempt at proofreading has been made to minimize errors. Please call for corrections. [email or web address] Not available 06/18/2024 14:07:32 Plan of Treatment Reminders Order Date Submit Date Provider Last Modified By Organization Details Last Modified Time Details Appointments RECHECK 10 2024 11:20A M Luis Garza MD Not available Not available Not available Lab None recorded . Referral None recorded . Procedures None recorded . Surgeries None recorded . Imaging XR, knee, 3 view - 304 [address] recheck 2024 025 [email or web address] [facility], [address], [place], [address], 06/22/2024 13:26:24 Medication Orders None recorded . Patient TargetsNo targets recorded. Patient InstructionsNo instructions recorded. Reason for Referral None Reported. Results Created Date Observation Date Name Description Value Unit Range Abnormal Flag Note LastModifiedBy Organization Detail LastModifiedTime 06/18/19 25 06/18/2024 XR, knee, 3 view [email or web address]:/ [email or web address] ?Encry pted=s hAaTro YD8dLq bEUv6g %2BXZw aYqtaq 0bqfl% 2Fg9IQ a4ajBk vP9nXo QUaueC m3YtLR FvZlgJ JJ8mAn HZtai3 3w5647 AC0Kqb H%2BCV 6qkKiQ trMwF INTERFACE [facility] [address], [place], [address], 06/18/2024 14:02:39 06/18/19 25 06/18/2024 XR, knee, 3 view [email or web address]:/ [email or web address] ?Encry pted=s hAaTro YD8dLq bEUv6g %2BXZw aYqtaq 0bqfl% 2Fg9IQ a4ajBk vP9nXo QUaueC m3YtLR FvZlgJ JJ8mAn HZtai3 6w1469 AC0Kqb H%2BCV 6qkKiQ trMwF INTERFACE [facility] [address], [place], [address], 06/18/2024 14:02:41 Result Notes None recorded. Problems Name Problem SNOMED Code Status Onset Date Resolution Date Notes Provider Name and Address Organization Details Recorded Time Osteoarth ritis of right knee joint 523885510128 100 Active 2023 Luis Garza MD [address], [place], [address] , [facility] 4 16:08:45 Arthrofib rosis of right knee 925631135775 30434 Active 2023 Luis Garza MD [address], [place], [address] , [facility] 4 11:07:30 Pain of right wrist 498390970807 100 Active 2016 Problem Code: M25.531; Problem Code Type: ICD-10; Status: 'A'; Not Available [facility] 4 11:14:45 Chondroma lacia of left patella 041927745672 106 Active 2017 Problem Code: M22.42; Problem Code Type: ICD-10; Status: 'A'; Not Available [facility] 4 11:14:45 Problem Notes None recorded. Procedures Surgical History Date Name Laterality Status Provider Name and Address Organization Details Recorded Time 4 97108 Therapeutic Exercise (1:1) completed Douglas Abreu, BRISKET PULLER [address] [facility], [place], [address], [facility] 03/09/2024 14:45:11 4 54806: Hot or Cold Pack completed Douglas Abreu BRISKET PULLER [address] [facility], [place], [address], [facility] 03/09/2024 14:45:11 4 37075: Manual therapy completed Douglas Abreu BRISKET PULLER [address] [facility], [place], [address], [facility] 03/09/2024 14:45:11 4 75678 Therapeutic Exercise (1:1) completed Rj Gaffney, PT [address] [facility], [place], [address], [facility] 03/03/2024 14:22:54 4 35391: Hot or Cold Pack completed Rj Pyser, PT [address], [place], [address], [facility] 03/03/2024 14:22:54 4 87029: Manual therapy completed Rj Pyser, PT [address], [place], [address], [facility] 03/03/2024 14:22:54 4 83809 Therapeutic Exercise (1:1) completed Douglas Scafuri, BRISKET PULLER [address], [place], [address], [facility] 02/26/2024 14:42:05 4 03538: Hot or Cold Pack completed Douglas Scafuri, BRISKET PULLER [address], [place], [address], [facility] 02/26/2024 14:42:05 4 95677: Manual therapy completed Douglas Scafuri, BRISKET PULLER [address], [place], [address], [facility] 02/26/2024 14:42:06 25888 Therapeutic Exercise (1:1) completed Dougals Scafuri, BRISKET PULLER [address], [place], [address], [facility] 02/24/2024 12:41:22 4 24210: Hot or Cold Pack completed Douglas Scafuri, BRISKET PULLER [address], [place], [address], [facility] 02/24/2024 12:41:22 4 56773: Manual therapy completed Douglas Scafuri, BRISKET PULLER [address], [place], [address], [facility] 02/24/2024 12:41:22 10/03/202 4 14752 Therapeutic Exercise (1:1) completed Rj Pyser, PT [address], [place], [address], [facility] 02/18/2024 14:33:19 4 58933: Hot or Cold Pack completed Rj Pyser, PT [address], [place], [address], [facility] 02/19/2024 12:40:09 4 07481: Manual therapy completed Rj Pyser, PT [address], [place], [address], [facility] 02/18/2024 14:33:19 4 13858 Therapeutic Exercise (1:1) completed Rj Pyser, PT [address], [place], [address], [facility] 02/15/2024 08:28:10 4 01165: Hot or Cold Pack completed Rj Pyser, PT [address], [place], [address], [facility] 02/17/2024 12:48:12 4 96627: Manual therapy completed Rj Pyser, PT [address], [place], [address], [facility] 02/15/2024 08:28:11 4 00270 Therapeutic Exercise (1:1) completed Douglas Scafuri, BRISKET PULLER [address], [place], [address], [facility] 02/09/2024 11:39:57 4 49330: Manual therapy completed Doulgas Scafuri, BRISKET PULLER [address], [place], [address], [facility] 02/09/2024 11:39:57 4 92773 Therapeutic Exercise (1:1) completed Douglas Scafuri, BRISKET PULLER [address], [place], [address], [facility] 02/03/2024 10:59:51 4 69736: Manual therapy completed Douglas Abreu, BRISKET PULLER [address], [place], [address], [facility] 02/03/2024 10:59:51 4 66079 Therapeutic Exercise (1:1) completed Douglas Abreu, BRISKET PULLER [address], [place], [address], [facility] 01/30/2024 09:15:13 4 07202: Manual therapy completed Douglas Abreu, BRISKET PULLER [address], [place], [address], [facility] 01/30/2024 09:15:13 4 62310 Therapeutic Exercise (1:1) completed Douglas Abreu, BRISKET PULLER [address], [place], [address], [facility] 01/28/2024 11:52:01 4 26978: Manual therapy completed Douglas Abreu, BRISKET PULLER [address], [place], [address], [facility] 01/28/2024 11:51:58 4 87714 Therapeutic Exercise (1:1) completed Rj Gaffney, PT [address], [place], [address], [facility] 01/22/2024 20:07:31 4 64263: Low complexity PT Eval completed Rj Gaffney, PT [address], [place], [address], [facility] 01/22/2024 20:07:34 4 72725 Therapeutic Exercise (1:1) completed Rj Gaffney, PT [address], [place], [address], [facility] 12/30/2023 10:15:09 4 38210: Low complexity PT Eval completed Rj Pyser, PT [address], [place], [address], [facility] 12/30/2023 10:15:15 Imaging Results None recorded. Procedure Notes None recorded. Medical Equipment None Reported. Allergies Allergen ID Allergen Name Allergen Category Reaction Reaction Severity Criticality Documentation Date Start Date Code Code System Note Provider Name and Address Organization Details Recorded Time 093725 oxycodone medicatio n Not available Not available Not available 10/16/[address] [facility] 4 10:49:15 769019 codeine medicatio n Not available Not available Not available 02/12/2024 2670 RxNorm Love Michele i, PA-C [address], [place], [address], [facility] 12:54:55 Medications Name Sig Start Date Stop Date Status Note LastModified by Organization Details LastModified Time tramadol 50 mg tablet TAKE 1 TO 2 TABLETS BY MOUTH EVERY 6 HOURS NOT TO EXCEED 400MG/DAY 02/11 completed Not Available Not Available Not Available acetaminoph en ER 650 mg tablet,exte nded release TAKE 1 TABLET 3 TIMES A DAY DIRECTED FOR 33 DAYS. 02/11 completed Not Available Not Available Not Available Celebrex 200 mg capsule Take 1 capsule every day by oral route as directed for 33 days. 02/11 completed Not Available Not Available Not Available aspirin 325 mg tablet,arelis yed release TAKE 1 TABLET BY MOUTH TWICE A DAY X 30 DAYS active Not Available Not Available No t Available pantoprazol e 40 mg tablet,arelis yed release TAKE 1 TABLET BY MOUTH EVERY DAY X 30 DAYS 02/11 completed Not Available Not Available Not Available pseudoephed rine-guaife nesin ER 80-700 mg tablet,exte nded release 1TAB Q4-[address] WHILE ON THIS MEDICATIO N 02/11 completed Statu s: 'Curr ent'; Not Available Not Available Not Available docusate sodium 100 mg capsule TAKE 1 CAPSULE BY MOUTH TWICE A DAY active Not Available Not Available No t Available norethindro ne acetate 5 mg tablet TAKE ONE TABLET ORALLY ONCE PER DAY 06/18 completed Not Available Not Available Not Available hydromorpho ne 4 mg tablet TAKE 1/2 TO 1 TABLET BY MOUTH EVERY 3 HOURS NEEDED FOR SEVER PAIN. MAX 6TABS/DAY /7DAYS INS * 02/11 completed Not Available Not Available Not Available naproxen 500 mg tablet TAKE 1 TABLET BY MOUTH EVERY 12 HOURS NEEDED FOR PAIN 02/11 completed Not Available Not Available Not Available oxycodone HCl-oxycodo ne-ASA PRN PAINDO NOT DRIVE WHILE TAKING THIS MEDICATIO N 01/26 completed Statu s: 'Curr ent'; Not Available Not Available Not Available Vitals Date Recorded Body height Body mass index (BMI) Body weight Provider Name and Address Organization Details Last Updated DateTime 06/18/2024 160.02 cm 46.1 kg/m2 027624.02 g SAMANTHA GONZÁLES [facility] 06/18/2024 13:50:34 Social History Question Answer Notes LastModified by Organizat ion Details LastModified Time Tobacco Smoking Status Never Smoker JESUS sandhu [facility] 02/12/2024 14:39:45 What Is Your Level Of Alcohol Consumption? None [email or web address] Information not available 02/12/2024 Do You Use Any Illicit Or Recreational Drugs? No Information not available 02/12/2024 Do You Or Have You Ever Used Any Other Forms Of Tobacco Or Nicotine? No Information not available 02/12/2024 Sex: Unknown Functional Status None recorded. Mental Status None recorded. Family History Nothing Reported. Medical History Condition Response Allergies/Hayfever Y Anxiety/Depression Y Arthritis Y Headaches Y Asthma Y Gynecological HistoryNo gynecological history recorded. Obstetrics History GPAL:G 0 P 0 0 0 0 Past Encounters Encounter ID Performer Location Encounter Start Date Encounter Closed Date Diagnosis/Indication Diagnosis SNOMED-CT Code Diagnosis ICD10 Code Diagnosis Note [id number] [facility] 3rd floor [address] [place] [address] 06/18/2024 13:43:57 06/18/2024 14:12:31 History of right total knee replacement 0988416583 048351 Z96.651 Health Concerns Section Related Observation LastModified by Organization Detai ls LastModified Time None Recorded Concern Status LastModified by Organization Details LastModified Time None Recorded Payers Encounter Date Sequence Insurance Name Policy Number Policy Espinosa Covered Member ID Espinosa Member ID Guarantor Name 06/18/2024 1 [employer] (MEDICARE REPLACEMENT/A DVANTAGE - PPO) Shital Erickson [id number] Shital Erickson OBGyn Episode No OBEpisode recorded.
== END 2024-07-12 10:32 | disposition home or self-care (01) ==
PROVIDERS: PCP Internal Medicine; Visit Provider Internal Medicine
DX: Z00.00 Encounter for general adult medical examination without abnormal findings (principal)

== ENCOUNTER → 2024-07-12 10:04 | Outpatient (BNVA) | payer OTHER, MEDICAID, SELFPAY | PROVIDERS: PCP Internal Medicine; Visit Provider Internal Medicine ==

== ENCOUNTER 2024-12-31 13:18 | Outpatient (REF) | payer MEDICARE, MEDICAID, SELFPAY ==
--- OUTSIDE RECORDS SUMMARY | 2024-12-29 23:59 | XMS_ITS | Continuity of Care Document ---
Author Organization [facility] Address [address] [place] [address]- Care Team Providers Care Display Director Name Role Phone Not on Staff, PCP Primary Care Physician Unavail able En[place] [facility] [place] 11/29/24 - 12/29/24 [facility] [address] [place] [address]- Attending Physician: Zoë Bergman Admitting Physician: Zoë Bergman Referring Physician: AdmtrZoë Encounter Type: Triage Allergies, Adverse Reactions, Alerts Substance Criticality Severity Reaction Reaction Severity Status codeine Active oxyCODONE dizziness Active Medications acetaminophen 325 mg oral tablet 650 mg, By Mouth, Every 6 hours, not to exceed 3000 mg/day, Refills 0, Maintenance, 12/08/24 8:32:00AM EDT, Partial fill upon patient request if the prescription is for a schedule II opioid drug. Start Date: 12/08/24 Status: Ordered Repeat number: 1 Colace Capsule 100 mg, 1, capsule, By Mouth, 2 times a day, PRN, Refills 0, Maintenance, as needed for constipation, 12/08/24 8:32:00 AM EDT, Partial fill upon patient request if the prescription is for a schedule II opioid drug. Start Date: 12/08/24 Stop Date: 01/07/25 Status: Ordered Repeat number: 1 diphenhydrAMINE 25 mg oral tablet = 25 mg, By Mouth, Every 6 hours, PRN Itch, 0 Refills, Maintenance, 12/08/24 8:33:00 AM EDT, Tablet,Partial fill upon patient request if the prescription is for a schedule II opioid drug. Start Date: 12/08/24 Status: Ordered Repeat number: 1 Ecotrin 325 mg oral delayed release tablet 1 tablet = 325 mg, By Mouth, 2 times a day, # 60 tablet, 0 Refills, Maintenance, 12/08/24 8:31:00 AMEDT, EC Tablet, Partial fill upon patient request if the prescription is for a schedule II opioid drug. Start Date: 12/08/24 Stop Date: 01/07/25 Status: Ordered Quantity: 60.0 Unit: tablet Repeat number: 1 MiraLax oral powder for reconstitution = 17 Gm, By Mouth, Daily, PRN Constipation, for 30 days, # 510 Gm, 0 Refills, Acute 01/07/25 8:31:00AM EDT, 12/08/24 8:31:00 AM EDT, REC Powder, Partial fill upon patient request if the prescription is for a schedule II opioid drug. Start Date: 12/08/24 Stop Date: 01/07/25 Status: Ordered Quantity: 510.0 Unit: g Repeat number: 1 pantoprazole 40 mg oral delayed release tablet = 40 mg, By Mouth, Daily, # 30 tablet, 0 Refills, Maintenance, 12/08/24 8:30:00 AM EDT, EC Tablet Start Date: 12/08/24 Stop Date: 01/07/25 Status: Ordered Quantity: 30.0 Unit: tablet Repeat number: 1 Problem List Condition Confirmation Course Effective Dates Status H ealth Status Informant Osteoarthritis of both knees Confirmed Active Lower extremity edema Confirmed Active Hx of migraine headaches Confirmed Active Anxiety and depression Confirmed Active PTSD (post-traumatic stress disorder) Confirmed Active Severe obesity Confirmed Active Social History Social History Type Response Smoking Status Never (less than 100 in lifetime) entered on: 11/29/24 Sex Sex Representation Female (finding) Patient Care team information Care Team Personnel Name: Shea Neri RN Position: [facility] AMB Nurse Member Role: Primary Care Nurse Name: Hitesh Caban RN Position: [facility] RN Member Role: Primary Care Nurse Name: Michelle Rodriguez RN Position: [facility] RN Member Role: Primary Care Nurse Name: Marcela Mireles RN Position: [facility] RN Member Role: Primary Care Nurse Name: Radha Silver RN Position: [facility] RN Member Role: Primary Care Nurse Name: Not on Staff, PCP Position: [facility] Physician (General Medicine) Member Role: PCP Name: Erica Car RN Position: [facility] RN Member Role: Primary Care Nurse Name: Eladia Ortiz RN Position: S RN Member Role: Primary Care Nurse Care Team Related Persons Name: NESTOR ALVARADO Insurance Providers Guarantor name: ALLYSON RENTERIA [employer] [facility] Information #: 1 Payer: [employer] Payer Identifier: Member Number: [id number] Group Number: [id number] Subscriber Identifier: [id number] Relationship to Subscriber: self Coverage Type: Managed Care (Private) Coverage Verification Date: NA Telecom: NA Address: [facility] Information #: 2 Payer: [employer] Payer Identifier: Member Number: [id number] Group Number: Subscriber Identifier: [id number] Relationship to Subscriber: self Coverage Type: MEDICAID Coverage Verification Date: NA Telecom: NA Address:
--- NOTE | ~2024-12-31 | MM_ITS ---
EXAMINATION: MM SCREENING DIGITAL BREAST TOMOSYNTHESIS, BILATERAL CLINICAL INFORMATION: Screening. Asymptomatic. COMPARISON: Comparison made to multiple prior, most recent November 17, 2023, and most remote October 13, 2018. TECHNIQUE: Digital breast tomosynthesis is performed in both the craniocaudal and mediolateral oblique views along with computer-aided detection (CAD). FINDINGS: BREAST COMPOSITION: The breasts are heterogeneously dense, which may obscure small masses (ACR BI-RADS breast composition Category c). RIGHT BREAST: No significant masses, suspicious calcifications or other abnormalities are seen. LEFT BREAST: Tissue marker from previous needle core biopsy. No significant masses, suspicious calcifications or other abnormalities are seen. MM/MM tomosynthesis screening BI IMPRESSION: BILATERAL BREASTS: Benign, no mammographic evidence of malignancy. Normal interval follow-up is recommended in 12 months. ASSESSMENT: BI-RADS 2 - Benign Findings RECOMMENDATION: Routine annual mammography screening. FOLLOW-UP: 1 year F/U This examination should not preclude the clinical evaluation of a suspicious palpable abnormality. This patient's information was entered into a reminder system with a target due date for their next mammogram. Electronically signed by: Jimmie Nickerson MD 01/04/2025 03:13 PM EDT
--- OUTSIDE RECORDS SUMMARY | 2024-12-31 13:21 | XMS_ITS | Clinical Summary ---
Author Organization [employer] Address [address] [place] [address] Care Team Providers Care Millwright Helper Name Role Phone Unavailable Primary Care Provider [...] Panel 1965 SDOH Screening 1965 Sigmoidoscopy 1965 Disability Screening 1965 Alcohol/Substance Use Screening 1977 Tobacco Screening 1977 Hepatitis C Screening 12/11/1983 Hepatitis B Vaccines (1 of 3 - 19+ 3-dose series) 1984 Pap Smear 1986 Cervical Cancer Screening 12/11/1995 HPV/Cotest 12/11/1995 Mammogram 2005 Pneumococcal Vaccine: 50+ Years (1 of 1 - PCV) 12/11/2015 Zoster Vaccines (1 of 2) 12/11/2015 COVID-19 Vaccine (5 - season) 2024 03/20/2022, 11/15/2021, 10/27/2020, Additional history exists Influenza Vaccine (#1) 2025 , 02/19/2020, 03/25/2016 DTaP/Tdap/Td Vaccines (2 - [...] patient's age to complete this topic Meningococcal B Vaccine Aged Out No l onger eligible based on patient's age to complete this topic Meningococcal Vaccine Aged Out No odell chet eligible based on patient's age to complete this topic RSV under 20 months Aged Out No longe r eligible based on patient's age to complete this topic Rotavirus Vaccines Aged Out No longer eligible based on patient's age to complete this topic Insurance [facility]
== END 2024-12-31 13:19 | disposition home or self-care (01) ==
LOC: HO.MAMMO 13:18
PROVIDERS: PCP Internal Medicine; Visit Provider Internal Medicine
DX: Z12.31 Encounter for screening mammogram for malignant neoplasm of breast (principal)
CPT/HCPCS: 77063; 77067

== ENCOUNTER → 2024-12-31 14:00 | Outpatient (BNV) | payer MEDICARE, MEDICAID, SELFPAY | PROVIDERS: PCP Internal Medicine; Visit Provider Radiology Body Imaging | DX: Z12.31 Encounter for screening mammogram for malignant neoplasm of breast (principal) | CPT/HCPCS: 77063; 77067 ==